=== PATIENT | male | born 1990 ===

== ENCOUNTER 2020-08-05 06:00 | Day surgery (SDC) | payer OTHER | END 2020-08-05 10:45 | disposition home or self-care (01) | LOC: AMB-ENDOS 06:00 | PROVIDERS: ATTEND Surgery | DX: D13.0 Benign neoplasm of esophagus (principal); Z20.828 Contact with and (suspected) exposure to other viral communicable diseases; K44.9 Diaphragmatic hernia without obstruction or gangrene ==